=== PATIENT | female | born 1960 | race Caucasian/White ===

== ENCOUNTER → 2023-06-26 | Outpatient (CLI) | payer OTHER | END | disposition home or self-care (01) | LOC: SHCH 13:54 | PROVIDERS: ATTEND Student in an Organized Health Care Education/Training Program | DX: I51.7 Cardiomegaly (principal); I73.9 Peripheral vascular disease, unspecified; I50.9 Heart failure, unspecified; I77.1 Stricture of artery | CPT/HCPCS: 93306; 93925 ==

== ENCOUNTER → 2023-07-14 | Outpatient (CLI) | payer OTHER ==
[2023-07-14 16:35] LABS: ALBUMIN 3.5 g/dL (3.5-5.0); BILIRUBIN,TOTAL 0.3 mg/dL (0.2-1.0); CREATININE 1.1 mg/dL (0.5-1.5); POTASSIUM 4.6 mmol/L (3.5-5.1); TOTAL PROTEIN, SERUM 7.2 g/dL (6.0-8.3)
== END | disposition home or self-care (01) ==
LOC: LAB 13:35
PROVIDERS: ATTEND Student in an Organized Health Care Education/Training Program
DX: I73.9 Peripheral vascular disease, unspecified (principal)
CPT/HCPCS: 36415; 80053

== ENCOUNTER → 2023-07-21 | Outpatient (CLI) | payer OTHER ==
[~2023-07-21] MED LIST: IOHEXOL 350 MG/ML 100ML INFUS..BTL IV ONE; IOHEXOL-350 50ML VIAL IV ONE
== END | disposition home or self-care (01) ==
LOC: RAH 08:05
PROVIDERS: ATTEND Student in an Organized Health Care Education/Training Program
DX: I70.90 Unspecified atherosclerosis (principal); R16.0 Hepatomegaly, not elsewhere classified; I73.9 Peripheral vascular disease, unspecified; M47.815 Spondylosis without myelopathy or radiculopathy, thoracolumbar region
CPT/HCPCS: 75635; Q9967 ×2

== ENCOUNTER → 2024-03-31 | Outpatient (CLI) | payer OTHER ==
[~2024-03-31] VITALS: Ht 165.1 cm; Wt 92.0 kg
[~2024-03-31] MED LIST changes: +AEC81 PO; +AMLO-258 PO; +ATOR40TA71 PO; +CLOP75TA32 PO; +DULA0.75 SQ; +ERGO500093 PO; +FENO54TA6 PO; +GLIP10TA19 PO; -IOHEXOL 350 MG/ML 100ML INFUS..BTL IV ONE; -IOHEXOL-350 50ML VIAL IV ONE; +LEVO25TA54 PO; +LOSA1TAB42 PO; +METO25TA6 PO
[2024-03-31 09:22] LABS: APPEARANCE,URINE CLEAR (CLEAR); BILIRUBIN,URINE NEGATIVE (NEGATIVE); COLOR,URINE LIGHT-YELLOW (YELLOW); GLUCOSE, URINE (UA) NEGATIVE (NEGATIVE); KETONES,URINE NEGATIVE (NEGATIVE); LEUKOCYTE ESTERASE ,URINE NEGATIVE Leu/uL (NEGATIVE); NITRATE,URINE NEGATIVE (NEGATIVE); OCCULT BLOOD,URINE NEGATIVE (NEGATIVE); PROTEIN,URINE NEGATIVE (NEGATIVE); UROBILINOGEN,URINE 0.2 mg/dL (0.2-1.0)
[2024-03-31 09:35] LABS: ADD UA MICROSCOPIC NO
[2024-03-31 11:58] VITALS: BP 148/69; PULSE 80; RESP 18; TEMP 98.1
== END | disposition home or self-care (01) ==
LOC: EDSTATUS 08:00 → DAH 10:00
PROVIDERS: ATTEND Student in an Organized Health Care Education/Training Program
DX: I73.9 Peripheral vascular disease, unspecified (principal)
CPT/HCPCS: 36415; 81003; 83880; 93005

== ENCOUNTER → 2024-04-27 | Outpatient (CLI) | payer OTHER ==
[~2024-04-27] MED LIST changes: +METO50TA18 PO
[2024-04-27 16:17] LABS: BASOPHILS # (AUTO) 0.01 K/uL (0.00-0.20); BASOPHILS % (AUTO) 0.2 % (0.0-5.0); EOSINOPHILS # (AUTO) 0.13 K/uL (0.00-0.70); EOSINOPHILS % (AUTO) 2.9 % (0.0-8.0); HEMATOCRIT 38.5 % (36-48); IMMATURE GRANULOCYTE ABSOLUTE 0.02 K/uL (0-1); LYMPHOCYTES # (AUTO) 0.7 K/uL (1.0-4.8); LYMPHOCYTES % (AUTO) 15.6 % (21.0-51.0); MEAN CORPUSCULAR HEMOGLOBIN 29.1 pg (27.0-33.0); MEAN CORPUSCULAR HGB CONC 32.5 g/dL (32.0-36.0); MEAN CORPUSCULAR VOLUME 89.5 fL (79-99); MONOCYTES # (AUTO) 0.3 K/uL (0.1-1.0); MONOCYTES % (AUTO) 7.6 % (3.0-13.0); NEUTROPHILS # (AUTO) 3.3 K/uL (1.8-7.7); NEUTROPHILS % (AUTO) 73.3 % (40.0-77.0); PLATELET COUNT (AUTO) 176 K/uL (130-400); RED CELL DISTRIBUTION WIDTH 15.4 % (11.0-15.5); WHITE BLOOD COUNT (AUTO) 4.5 K/uL (4.8-10.8)
[2024-04-27 16:20] LABS: CREATININE 1.2 mg/dL (0.5-1.0); POTASSIUM 3.6 mmol/L (3.5-5.1)
[2024-04-27 16:28] LABS: INR 0.95 (0.85-1.15); PROTHROMBIN TIME 10.3 SEC (9.6-11.6)
[2024-04-27 16:30] LABS: PARTIAL THROMBOPLASTIN TIME 28.5 SEC (26.3-35.5)
== END | disposition home or self-care (01) ==
LOC: LAB 11:32
PROVIDERS: ATTEND Student in an Organized Health Care Education/Training Program
DX: I50.20 Unspecified systolic (congestive) heart failure (principal)
CPT/HCPCS: 36415; 80048; 85025; 85610; 85730

== ENCOUNTER 2024-05-04 05:41 | Day surgery (SDC) | payer OTHER ==
[2024-04-30 10:35] VITALS: BP 135/67; PULSE 80; RESP 18; TEMP 97.2
[~2024-05-04] VITALS: Ht 165.1 cm; Wt 92.2 kg
[2024-05-04] VITALS (11 sets, daily range): BP systolic 108–154; BP diastolic 57–73; PULSE 63–85; RESP 10–18; TEMP 97.6–97.9
[~2024-05-04 05:41] MED LIST changes: -METO25TA6 PO
[2024-05-04] MEDS: 0.9%NACL 1000ML 1,000 ML IV ONE (06:47)
[2024-05-04] MEDS ORDERED: LIDOCAINE HCL 400MG/20ML VIAL ONE (07:15)
[2024-05-04] MEDS ORDERED: IODIXANOL 320 MG/ML 100 ML VIAL ONE (07:15)
[2024-05-04] MEDS ORDERED: HEParin-NS 1,000 UNIT/500 ML 1,000 ML IV ONE (07:16)
[2024-05-04] MEDS ORDERED: NITROGLYCERIN 50MG VIAL ONE (07:16)
[2024-05-04] MEDS ORDERED: HEParin 10,000 UNIT/10ML (1,000 UNIT/ML) VIAL ONE (07:20)
[2024-05-04] MEDS ORDERED: FENTanyl CITRate PF 50 MCG/1 ML 2ML VIAL ONE (07:32)
[2024-05-04] MEDS ORDERED: MIDAZOLAM HCL 1 MG/ML 2ML VIAL ONE ×2 (07:32→07:51)
[2024-05-04] MEDS ORDERED: DEXTROSE 50%-WATER 50 ML DISP.SYRIN IV PRN (09:00)
[2024-05-04] MEDS ORDERED: GLUCAGON 1MG KIT 1 MG ML IM PRN (09:00)
== END 2024-05-04 12:45 | disposition home or self-care (01) ==
LOC: DAH 05:41
PROVIDERS: ATTEND Student in an Organized Health Care Education/Training Program
DX: E11.51 Type 2 diabetes mellitus with diabetic peripheral angiopathy without gangrene (principal); I70.212 Atherosclerosis of native arteries of extremities with intermittent claudication, left leg; I11.0 Hypertensive heart disease with heart failure; I50.20 Unspecified systolic (congestive) heart failure; E11.8 Type 2 diabetes mellitus with unspecified complications; E78.5 Hyperlipidemia, unspecified; Z95.5 Presence of coronary angioplasty implant and graft; Z85.41 Personal history of malignant neoplasm of cervix uteri; Z98.890 Other specified postprocedural states; Z79.82 Long term (current) use of aspirin; Z79.899 Other long term (current) drug therapy
CPT/HCPCS: 75625; 36246; 75716; 82948 ×2; C1894 ×5; C1760; C1769; J3010; J3490 ×2; J7030; J2250 ×2; J1644; Q9967; A4215; A4222; A4221; A4663; A4216; A4606; A4223 ×3; 36140; 99156; 99157

== ENCOUNTER → 2024-06-15 | Outpatient (CLI) | payer OTHER ==
[~2024-06-15] MED LIST changes: +ALBU18HF7 IH; +CILO100T3 PO; +POTA-364 PO
[2024-06-15 12:18] LABS: BASOPHILS # (AUTO) 0.02 K/uL (0.00-0.20); BASOPHILS % (AUTO) 0.4 % (0.0-5.0); EOSINOPHILS # (AUTO) 0.18 K/uL (0.00-0.70); EOSINOPHILS % (AUTO) 3.9 % (0.0-8.0); HEMATOCRIT 37.1 % (36-48); IMMATURE GRANULOCYTE ABSOLUTE 0.02 K/uL (0-1); LYMPHOCYTES # (AUTO) 0.8 K/uL (1.0-4.8); LYMPHOCYTES % (AUTO) 16.4 % (21.0-51.0); MEAN CORPUSCULAR HEMOGLOBIN 28.9 pg (27.0-33.0); MEAN CORPUSCULAR HGB CONC 32.1 g/dL (32.0-36.0); MONOCYTES # (AUTO) 0.4 K/uL (0.1-1.0); MONOCYTES % (AUTO) 9.2 % (3.0-13.0); NEUTROPHILS # (AUTO) 3.2 K/uL (1.8-7.7); NEUTROPHILS % (AUTO) 69.7 % (40.0-77.0); PLATELET COUNT (AUTO) 185 K/uL (130-400); RED BLOOD CELL COUNT(AUTO) 4.12 MIL/uL (4.00-5.50); RED CELL DISTRIBUTION WIDTH 14.4 % (11.0-15.5); WHITE BLOOD COUNT (AUTO) 4.6 K/uL (4.8-10.8)
[2024-06-15 12:32] LABS: INR 0.95 (0.85-1.15); PROTHROMBIN TIME 10.3 SEC (9.6-11.6)
[2024-06-15 12:33] LABS: PARTIAL THROMBOPLASTIN TIME 27.1 SEC (26.3-35.5)
[2024-06-15 12:40] LABS: CREATININE 1.1 mg/dL (0.5-1.0); POTASSIUM 3.9 mmol/L (3.5-5.1)
== END | disposition home or self-care (01) ==
LOC: LAB 08:46
PROVIDERS: ATTEND Student in an Organized Health Care Education/Training Program
DX: I73.9 Peripheral vascular disease, unspecified (principal); Z79.899 Other long term (current) drug therapy; I11.0 Hypertensive heart disease with heart failure; I50.20 Unspecified systolic (congestive) heart failure
CPT/HCPCS: 36415; 80048; 85025; 85610; 85730

== ENCOUNTER 2024-06-22 05:41 | Day surgery (SDC) | payer OTHER ==
--- NOTE | 2024-06-17 13:42 | EKG ---
[facility] Test Date: 2024-06-17 Test Time: 14:24:06 Pat Name: NAA HOUSE Department: [facility] Room: Gender: F Bobbin Winder: [id number] : 1960 Requested By: AKI BASSETT Order Number: [id number] Reading MD: Timbo Andujar Measurements Intervals [place] Rate: 85 P: 69 W[place]: 196 QRS: 25 QRSD: 103 T: 24 QT: 395 QTc: 471 Interpretive Statements Sinus rhythm Compared to ECG 03/31/2024 10:08:39 No significant changes Electronically Signed On 06-17-2024 14:02:06 [employer]ARDOUS MATERIALS ANALYST by Timbo Andujar Please click the below link to view image of tracing.
[2024-06-17 13:50] VITALS: BP 129/68; PULSE 85; RESP 18; TEMP 97.4
[2024-06-17 13:57] LABS: APPEARANCE,URINE CLEAR (CLEAR); BILIRUBIN,URINE NEGATIVE (NEGATIVE); COLOR,URINE YELLOW (YELLOW); GLUCOSE, URINE (UA) NEGATIVE (NEGATIVE); KETONES,URINE NEGATIVE (NEGATIVE); LEUKOCYTE ESTERASE ,URINE NEGATIVE Leu/uL (NEGATIVE); NITRATE,URINE NEGATIVE (NEGATIVE); OCCULT BLOOD,URINE NEGATIVE (NEGATIVE); PROTEIN,URINE NEGATIVE (NEGATIVE); UROBILINOGEN,URINE 3 mg/dL (0.2-1.0)
[2024-06-17 13:58] LABS: ADD UA MICROSCOPIC YES
[2024-06-17 14:30] LABS: MUCUS,URINE RARE LPF (None Seen); SQUAMOUS EPITHELIAL CELL,UR FEW /HPF (0-2)
--- NOTE | 2024-06-17 15:05 | HMCIMG ---
CHEST 1VW REASON: PREOP COMPARISON: None. FINDINGS: Single view of the chest was obtained. Lungs are clear. Heart size is normal. There is no pulmonary vascular congestion. Mediastinum and bony thorax appear unremarkable. IMPRESSION: 1. Normal single view chest x-ray.
[~2024-06-22] VITALS: Ht 165.1 cm; Wt 94.9 kg
[2024-06-22] VITALS (11 sets, daily range): BP systolic 94–136; BP diastolic 55–74; PULSE 74–91; RESP 13–16; TEMP 97.1–98.4
[2024-06-22] MEDS ORDERED: LIDOCAINE HCL 400MG/20ML VIAL ONE (07:43)
[2024-06-22] MEDS ORDERED: HEParin 10,000 UNIT/10ML (1,000 UNIT/ML) VIAL ONE (07:43)
[2024-06-22] MEDS ORDERED: IODIXANOL 320 MG/ML 100 ML VIAL ONE ×2 (07:43→09:02)
[2024-06-22] MEDS ORDERED: HEParin-NS 1,000 UNIT/500 ML 1,000 ML IV ONE (07:43)
[2024-06-22] MEDS ORDERED: NITROGLYCERIN 50MG VIAL ONE (07:44)
[2024-06-22] MEDS ORDERED: MIDAZOLAM HCL 1 MG/ML 2ML VIAL ONE ×4 (08:05→09:41)
[2024-06-22] MEDS ORDERED: FENTanyl CITRate PF 50 MCG/1 ML 2ML VIAL ONE ×2 (08:05→08:52)
[2024-06-22] MEDS ORDERED: DiphenhydrAMINE HCL 50 MG/ML VIAL ONE ×2 (08:21→09:31)
[2024-06-22] MEDS ORDERED: HEParin-NS 1,000 UNIT/500 ML 500 ML IV ONE (09:02)
[2024-06-22] MEDS ORDERED: GLUCAGON 1MG KIT 1 MG ML IM PRN (10:00)
[2024-06-22] MEDS ORDERED: DEXTROSE 50%-WATER 50 ML DISP.SYRIN IV PRN (10:00)
--- NOTE | 2024-06-22 10:10 | PRN ---
PERIPHERAL ANGIOGRAM PROCEDURE REPORT: Aki De Santiago MD 06/22/2024 Indication: Bilateral PAD Claudication Abnormal arterial Dopplers. PROCEDURE PERFORMED: Conscious sedation Ultrasound-guided left common femoral arterial access Abdominal aortogram Catheter placement in the right superficial femoral artery Selective left iliofemoral angiography Right lower extremity peripheral angiogram with runoff IVUS of the right SFA Status post successful IVUS guided, IVS (shockwave 6 x 80 mm), and WATER SERVER/DCB (5 x 250 mm) of the right prox to distal SFA Perclose hemostasis of the left common femoral artery PROCEDURE DETAILS: Following informed consent the patient was taken to the solder making laborer in the fasting state a condition where she was draped in sterilized in usual fashion. Access was obtained via the left common femoral arterial under ultrasound guidance using a micropuncture technique. We then advanced a 6 [place] arterial sheath in the left common femoral artery which was then aspirated and flushed. We then p erformed a limited left iliofemoral angiography to delineate her anatomy. We then advanced a 5French omni catheter over the wire into the descending abdominal aorta and performed abdominal aortogram. We then used a 035 glide advantage within the Omni catheter and advanced the wire into the ostial right SFA under fluoroscopic guidance and performed RLE angiogram with runoff. Following review of the angiographic images lesion was made to intervene on the patient's right SFA. We exchanged the short six [place]itanian arterial sheath for a six [place] 45 cm arterial sheath which was advanced into the right ostial SFA. We then advanced a runthrough wire into the distal right WATER SERVER under fluoroscopic guidance. We attempted to traverse the distal right WATER SERVER PATTERN WEAVER for many significant resistance. We advanced a FineCross microcatheter over the wire with similar results. We exchanged the runthrough wire for a Psychologist Chief 200 guidewire with similar results. Given the inability traverse the distal WATER SERVER PATTERN WEAVER we directed our attention to the right SFA. Using the microcatheter we exchanged the Psychologist Chief 200 for the runthrough were course guidewire and we proceeded with IVUS imaging of the entire right SFA. We then proceeded with shockwave lithotripsy/aVL using a 6 x 80 mm shockwave balloon which was inflated to four GUSTABO serially from the distal to proximal SFA performing multiple lithotripsy therapies. We then proceeded with WATER SERVER using a 6 x 250 mm DCB which was deployed from the proximal to distal right SFA to nominal pressures for a total of 3 minutes. We then provided a total of 200 mcg of nitroglycerin and repeat angiogram revealed gnosticism of brisk flow distally with no perforations. We there was a minimal non flow-limiting dissection in the mid SFA which we will manage medically. Following review of all the angiographic images decision made to terminate the procedure we exchanged the 45 cm sheath for a six Mauritanian short sheath. We then deployed a six [place]ian Perclose of the left common femoral artery with patent hemostasis. 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 LEFT: Common iliac is calcified and patent External iliac is calcified and patent Internal iliac has 100% stenosis at the ostium Common femoral artery diffusely calcified with diffuse 20 30% stenosis RIGHT: Common iliac is calcified and patent External iliac is calcified and patent Internal iliac is patent Common femoral artery diffusely calcified with diffuse 20 30% stenosis Profunda artery is diffusely calcified and provides robust collaterals to the infrapopliteal vessels SFA diffusely calcified with multiple segments of 60-70% proximal stenosis and 90% mid-distal stenosis Popliteal artery is patent with mild diffuse 20% 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 and the patient remains symptomatic we will attempt to stage her right distal WATER SERVER PATTERN WEAVER AKI Andrews MD, MD Jun 22, 2024 10:10
[2024-06-22] MEDS: 0.9%NACL 1000ML 1,000 ML IV SCH (13:56)
[2024-06-23] MEDS ORDERED: cloPIDOgrel 75MG TAB PO SCH (09:00)
[2024-06-23] MEDS ORDERED: ASPIRIN 81MG CHEW TAB PO SCH (09:00)
== END 2024-06-22 13:58 | disposition home or self-care (01) ==
LOC: DAH 05:41
PROVIDERS: ATTEND Student in an Organized Health Care Education/Training Program
DX: E11.51 Type 2 diabetes mellitus with diabetic peripheral angiopathy without gangrene (principal); I70.213 Atherosclerosis of native arteries of extremities with intermittent claudication, bilateral legs; I70.92 Chronic total occlusion of artery of the extremities; E78.5 Hyperlipidemia, unspecified; I11.0 Hypertensive heart disease with heart failure; I50.20 Unspecified systolic (congestive) heart failure; F17.210 Nicotine dependence, cigarettes, uncomplicated; Z79.82 Long term (current) use of aspirin; Z79.899 Other long term (current) drug therapy
CPT/HCPCS: 83880; 81001; 36415; 71045; 93005; 75625; 75716; 37252; 85347 ×2; 82948 ×2; C9764; C1887; C1725; C1894 ×2; C1760; C1893; C1769 ×3; C1753; C2623; J1200 ×2; J3010 ×2; J3490 ×2; J1644 ×3; J2250 ×4; Q9967; A4215; A4222; A4221; A4663; A4216; A4606; A4223 ×3; 99156; 99157